=== PATIENT | female | born 1950 | race Caucasian/White ===

== ENCOUNTER 2021-03-24 10:36 | Emergency (ER) | payer MEDICARE, BC ==
[~2021-03-24] VITALS: Ht 160 cm; Wt 50.8 kg
[2021-03-24] MEDS ORDERED: IV NORMAL SALINE 1000 ML BAG IV ONE (11:15)
[2021-03-24 11:44] LABS: BASOPHILS % (AUTO) 0.1 % (0.0-2.0); EOSINOPHILS % (AUTO) 0.3 % (0.0-7.0); HEMATOCRIT 36.6 % (31.2-41.9); HEMOGLOBIN 12.3 g/dL (10.9-14.3); LYMPHOCYTES # (AUTO) 0.4 K/uL (20.0-40.0); LYMPHOCYTES % (AUTO) 7.1 % (20.5-51.5); MEAN CORPUSCULAR HEMOGLOBIN 28.3 uug (24.7-32.8); MEAN CORPUSCULAR HGB CONC 34 g/dL (32.3-35.6); MEAN CORPUSCULAR VOLUME 84.2 fL (75.5-95.3); MONOCYTES # (AUTO) 0.4 K/uL (2.0-10.0); MONOCYTES % (AUTO) 6.1 % (0.0-11.0); NEUTROPHILS # (AUTO) 5.1 K/uL (1.8-8.9); NEUTROPHILS % (AUTO) 86.4 % (38.5-71.5); PLATELET COUNT (AUTO) 122 K/uL (179-408); RED BLOOD CELL COUNT(AUTO) 4.35 MIL/uL (3.63-4.92); WHITE BLOOD COUNT (AUTO) 5.9 K/uL (3.8-11.8)
[2021-03-24 11:50] LABS: BILIRUBIN,DIRECT 0.2 mg/dL (0.0-0.2); BILIRUBIN,TOTAL 0.4 mg/dL (0.2-1.0); CREATININE 0.8 mg/dL (0.6-1.3); POTASSIUM 3.8 mmol/L (3.5-5.1); TOTAL PROTEIN, SERUM 7.5 g/dL (6.4-8.2)
[2021-03-24] MEDS ORDERED: FLEET ENEMA 133 ML BOTTLE RC ONE (12:00)
--- NOTE | 2021-03-24 13:34 | NUR ---
pt ambulated to bathroom multiple times. had some soft bm, but still fees its "stuck". notified.
[2021-03-24] MEDS ORDERED: LORAZEPAM 2 MG/1 ML VIAL ONE (13:59)
--- NOTE | 2021-03-24 14:10 | NUR ---
assissted md with digital stool extraction. pt tolerated well.
[2021-03-24] MEDS ORDERED: LORAZEPAM 2 MG/1 ML VIAL IV ONE (14:15)
--- NOTE | 2021-03-24 14:27 | NUR ---
Patient discharged to home in stable condition. Written and verbal after care instructions given. Patient verbalizes understanding of instructions. Stressed follow up or return to ER for worsening s/s.pt says feels better. pt accompanied by so, pt not driving.
[2021-03-24 14:28] VITALS: BP 121/79
== END 2021-03-24 14:29 | disposition home or self-care (01) ==
LOC: ER 10:36
DX: K56.41 Fecal impaction (principal); C56.9 Malignant neoplasm of unspecified ovary; Z79.899 Other long term (current) drug therapy; K80.20 Calculus of gallbladder without cholecystitis without obstruction; J90 Pleural effusion, not elsewhere classified; K76.89 Other specified diseases of liver; Z90.721 Acquired absence of ovaries, unilateral; Z90.49 Acquired absence of other specified parts of digestive tract
CPT/HCPCS: 36415; 74176; 80048; 80076; 83690; 85025; 96361; 96374; 99284; J2060; A4663; J7030